=== PATIENT | female | born 1935 | race Caucasian/White ===

== ENCOUNTER 2020-05-17 14:41 | Outpatient (CLI) | payer MEDICARE, SELFPAY ==
--- NOTE | ~2020-05-17 | CT_ITS ---
EXAMINATION: CT lumbar spine wo con DATE: 05/17/2020 15:11 INDICATION: Low back pain. Spinal stenosis. TECHNIQUE: Computed tomography (CT) of the lumbar spine was performed without intravenous contrast. A utomated exposure control and iterative reconstruction technique were employed. The dose-length produ ct was 827.50 mGy-cm. COMPARISON: None FINDINGS: There is 4 degrees dextrocurvature of lumbar spine. There is interbody fusion at T11-T12. T here is a burst fracture of L1 with greater than 4/5 loss of height, coronal cleft, and retropulsion of bone 7 mm into central spinal canal with moderate central canal stenosis. There is moderately decr eased disc height at T12-L1, mildly decreased disc height from L2-L3 through L4-L5, and severely decr eased disc height at L5-S1. 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 The following disc le vels are specifically discussed: L1-L2: The disc is bulging. There is mild bilateral facet joint osteoarthritis. There is mild bilater al neural foraminal stenosis. There is no central canal stenosis. L2-L3: The disc is bulging. There is mild bilateral facet joint osteoarthritis. There is mild right a nd moderate left neural foraminal stenosis. There is mild central canal stenosis. L3-L4: The disc is bulging. There is moderate right and mild left facet joint osteoarthritis. There i s mild lateral neural foraminal stenosis. There is mild central canal stenosis. L4-L5: The disc is bulging. There is severe bilateral facet joint osteoarthritis. There is moderate r ight and mild left neural foraminal stenosis. There is mild central canal stenosis. L5-S1: The disc is bulging. There is severe bilateral facet joint osteoarthritis. There is mild bilat eral neural foraminal stenosis. There is mild central canal stenosis. IMPRESSION: 1. Burst fracture of L1. 2. Severe lumbar spondylosis. Reviewed, dictated and finalized at location A. [facility]
== END 2020-05-17 14:42 ==
PROVIDERS: PCP Internal Medicine; Visit Provider Internal Medicine
DX: M47.817 Spondylosis without myelopathy or radiculopathy, lumbosacral region (principal); M48.07 Spinal stenosis, lumbosacral region
CPT/HCPCS: 72131